=== PATIENT | female | born 1990 | race Caucasian/White ===

== ENCOUNTER → 2021-10-19 | Outpatient (CLI) | payer OTHER ==
--- NOTE | 2021-10-20 08:38 | RAD ---
EXAM: ULTRASOUND PELVIS INDICATION: Reason: PCOS, HX OF OVARIAN CYSTS / Spl. Instructions: / History: . Last menstrual abbie od was 70+ days ago. COMPARISON: None available. TECHNIQUE: Transabdominal sonography was performed. FINDINGS: The uterus measures 8.1 x 4.6 x 3.3 cm. The endometrium measures 0.6 cm. There is no focal myometria l abnormality The right ovary measures 4.1 x 3 x 2.1 cm. The left ovary measures 3.3 x 2.8 x 2.2 cm. Flow seen to both ovaries. 1.4 cm cystic structure left ovary, likely dominant follicle. There is no free fluid. IMPRESSION: 1. Dominant follicle left ovary. 2. No evidence for ovarian torsion. Electronically signed by: Avery Alexander MD (10/20/2021 8:36 AM) [id number]
== END ==
LOC: US 15:16
PROVIDERS: ATTEND Obstetrics & Gynecology
DX: N83.02 Follicular cyst of left ovary (principal); E28.2 Polycystic ovarian syndrome; Z87.42 Personal history of other diseases of the female genital tract
CPT/HCPCS: 76856